=== PATIENT | male | born 1945 | race Two or more races ===

== ENCOUNTER 2016-09-14 17:27 | Emergency (ER) | payer MEDICAID, OTHER ==
[~2016-09-14] VITALS: Ht 177.8 cm; Wt 68.0 kg
[~2016-09-14 17:27] MED LIST: DICL50TA4 PO; IBUP600T27 PO; OXYB15TA12 PO
[2016-09-14 18:05] VITALS: BP 113/82
[2016-09-14] MEDS ORDERED: SODIUM CHLORIDE 0.9% 1,000 ML IV ONE (19:31)
[2016-09-14] MEDS ORDERED: ONDANSETRON HCL 4 MG/2 ML VIAL IV ONE (19:45)
[2016-09-14] MEDS ORDERED: MORPHINE SULFATE 4 MG/ML SYRG IV ONE (19:45)
[2016-09-14 20:19] LABS: Basophils # (auto) 0 uL; Basophils % (auto) 0.5 % (0.0-2.0); CONDITION Y; Eosinophils # (auto) 0.3 uL; Eosinophils % (auto) 3.4 % (0.0-7.0); Hematocrit 42.6 % (41.0-53.0); Hemoglobin 14.5 g/dL (13.5-17.5); Lymphocytes # (auto) 2.3 uL; Lymphocytes % (auto) 23.9 % (10.0-50.0); Mean Corpuscular Hemoglobin 32.1 pg (28.0-32.0); Mean Corpuscular Volume 94.6 fL (80.0-100.0); Monocytes # (auto) 0.8 uL; Monocytes % (auto) 8.5 % (0.0-12.0); Neutrophils # (auto) 6.1 uL; Neutrophils % (auto) 63.7 % (37.0-80.0); Platelet Count (auto) 316 10^3/uL (140-450); Red Cell Distribution Width 14.1 % (11.6-16.0); White Blood Cell 9.6 10^3/uL (4.4-10.8)
[2016-09-14 20:31] LABS: Urine Bilirubin Negative (Negative); Urine Blood Negative /uL (Negative); Urine Color Yellow (Yellow); Urine Glucose Normal (Normal); Urine Ketone Negative (Negative); Urine Mucus FEW (None Seen); Urine Nitrite Negative (Negative); Urine RBC 1 /hpf (0 - 3)
[2016-09-14 20:34] LABS: Albumin 3.3 g/dL (3.4-5.0); BUN/Creatinine Ratio 31.1; Calcium 8.5 mg/dL (8.5-10.1); INR 0.98 (0.9-1.15); Partial Thromboplastin Time 28.8 sec (22.64-33.71); Prothrombin Time 10.7 sec (9.37-12.3)
[2016-09-14 20:37] LABS: Bilirubin, Total 0.7 mg/dL (0.2-1.0); Total Protein 7.2 g/dL (6.4-8.2)
[2016-09-14] MEDS ORDERED: TETANUS-DIPTH-ACEL PERTUSSIS 0.5ML SYRG IM ONE (21:15)
[2016-09-14] MEDS ORDERED: cefTRIAXone 1GM/50ML D5W 50 ML IV ONE (22:30)
== END 2016-09-15 02:00 | disposition left against medical advice (07) ==
LOC: ER 17:29
DX: L03.116 Cellulitis of left lower limb (principal); L03.115 Cellulitis of right lower limb; M19.90 Unspecified osteoarthritis, unspecified site; B19.20 Unspecified viral hepatitis C without hepatic coma; M41.9 Scoliosis, unspecified; F17.210 Nicotine dependence, cigarettes, uncomplicated; Z79.899 Other long term (current) drug therapy
CPT/HCPCS: 36415; 71010; 73562; 73590; 80053; 81001; 85025; 85610; 85730; 87040; 90471; 90715; 93971; 96365; 96375; 99285; J0696; J2270; J2405; J7030

== ENCOUNTER 2020-11-09 21:53 | Inpatient (IN) | payer OTHER, MEDICAID ==
[~2020-11-09] VITALS: Ht 180.3 cm; Wt 154.8 kg
[2020-11-09 23:06] LABS: Hemoglobin 15.2 g/dL (13.5-17.5)
[2020-11-09 23:20] LABS: Hematocrit 44.1 % (41.0-53.0); Mean Corpuscular Hemoglobin 32.5 pg (28.0-32.0); Mean Corpuscular Hgb Conc. 34.6 g/dL (32.0-36.0); Mean Corpuscular Volume 94.1 fL (80.0-100.0); Red Blood Cells 4.68 10^6/uL (4.5-5.90); Red Cell Distribution Width 13.9 % (11.8-14.3); White Blood Cell 23.5 10^3/uL (4.4-10.8)
[2020-11-09 23:23] LABS: Basophils % (manual) 0 (0.0-2.0); Blast Cells 0; Eosinophils % (manual) 0 (0-7); Metamyelocytes % 0; Myelocytes % 0; Promyelocytes % 0; Reactive Lymphocytes 0
[2020-11-09 23:24] LABS: Alanine Aminotransferase 54 U/L (16-61); Albumin 3.1 g/dL (3.4-5.0); Anion Gap 10 (5-15); Aspartate Aminotransferase 47 U/L (15-37); BUN/Creatinine Ratio 26.8; Blood Urea Nitrogen 26 mg/dL (7-18); Calcium 8.6 mg/dL (8.5-10.1); Carbon Dioxide 24 mmol/L (21-32); Chloride 94 mmol/L (98-107); GFR African American 97 mL/min; GFR Non-African American 80 mL/min; Glucose 118 mg/dL (74-106); Potassium 3.8 mmol/L (3.5-5.1); Sodium 128 mmol/L (136-145)
[2020-11-09 23:31] LABS: Alkaline Phosphatase 99 U/L (45-117); Bilirubin, Total 1.2 mg/dL (0.2-1.0); Total Protein 7.6 g/dL (6.4-8.2)
[2020-11-10] MEDS ORDERED: SODIUM CHLORIDE 0.9% 1,000 ML IV ONE
[2020-11-10 00:09] LABS: Band Neutrophils % (manual) 19; Lymphocytes % (manual) 3 (10.0-50.0); Monocytes % (manual) 10 (0-12)
[2020-11-10] MEDS ORDERED: IOHEXOL 300 MG/ML 100ML BOTTLE IJ ONE (00:58)
[2020-11-10] MEDS ORDERED: ONDANSETRON HCL 4 MG/2 ML VIAL IV ONE (01:00)
[2020-11-10 01:35] LABS: Urine Bacteria NONE SEEN /hpf (None Seen); Urine Blood 1+ /uL (Negative); Urine Mucus FEW (None Seen); Urine Specific Gravity 1.017 (1.001-1.035); Urine WBC 1825 /hpf (0 - 3); Urine WBC Clumps PRESENT /hpf (None Seen)
[2020-11-10] MEDS ORDERED: cefTRIAXone 1GM/50ML D5W 50 ML IV ONE (04:15)
[2020-11-10] MEDS ORDERED: MORPHINE SULFATE INJECTION 2 MG/ML SYRG IV ONE ×2 (06:15→09:00)
[2020-11-10] MEDS ORDERED: NITROGLYCERIN 0.4 MG SL TAB SL PRN (08:30)
[2020-11-10] MEDS ORDERED: SODIUM CHLORIDE 0.9% 1,900 ML IV ONE (08:30)
[2020-11-10] MEDS ORDERED: MORPHINE SULFATE INJECTION 2 MG/ML SYRG IV PRN (08:30)
[2020-11-10] MEDS ORDERED: ACETAMINOPHEN 500 MG TAB PO PRN (11:00)
[2020-11-10] MEDS ORDERED: ONDANSETRON HCL 4 MG/2 ML VIAL IV PRN (11:00)
[2020-11-10 12:12] LABS: Amylase 28 U/L (25-115); Lipase 30 U/L (73-393)
[2020-11-10] MEDS: SODIUM CHLORIDE 0.9% 1,000 ML IV SCH ×2 (12:26→21:00)
[2020-11-10] MEDS: HYDROmorphone HCL 2 MG/ML VL IV PRN ×2 (13:37→18:45)
[2020-11-10 18:05] VITALS: BP 115/70
[2020-11-10 20:24] LABS: INR 1.19 (0.9-1.15); Partial Thromboplastin Time 34.2 sec (23.6-33.0)
[2020-11-10 22:00] VITALS: BP 115/70
[2020-11-11] VITALS (7 sets, daily range): BP systolic 111–137; BP diastolic 67–84
[2020-11-11] MEDS: HYDROmorphone HCL 2 MG/ML VL IV PRN ×5 (00:37→23:05)
[2020-11-11] MEDS: SODIUM CHLORIDE 0.9% 1,000 ML IV SCH ×2 (06:31→18:05)
[2020-11-11 10:17] LABS: Basophils # (auto) 0.1 10 ^3/uL (0-0.2); Basophils % (auto) 0.3 % (0.0-2.0); Eosinophils # (auto) 0 10 ^3/uL (0-0.8); Hematocrit 35.6 % (41.0-53.0); Lymphocytes # (auto) 0.4 10 ^3/uL (0.4-5.4); Lymphocytes % (auto) 2.5 % (10.0-50.0); Mean Corpuscular Hemoglobin 32.1 pg (28.0-32.0); Mean Corpuscular Hgb Conc. 33.7 g/dL (32.0-36.0); Mean Corpuscular Volume 95.1 fL (80.0-100.0); Monocytes # (auto) 0.8 10 ^3/uL (0-1.3); Monocytes % (auto) 4.6 % (0.0-12.0); Neutrophils # (auto) 15.9 10 ^3/uL (1.6-8.6); Neutrophils % (auto) 92.6 % (37.0-80.0); Red Blood Cells 3.74 10^6/uL (4.5-5.90); Red Cell Distribution Width 14.1 % (11.8-14.3); White Blood Cell 17.1 10^3/uL (4.4-10.8)
[2020-11-11 10:38] LABS: Potassium 3.2 mmol/L (3.5-5.1)
[2020-11-11 10:46] LABS: Albumin 1.9 g/dL (3.4-5.0); BUN/Creatinine Ratio 55.6; Bilirubin, Total 0.5 mg/dL (0.2-1.0); Calcium 7.5 mg/dL (8.5-10.1); Total Protein 5.8 g/dL (6.4-8.2)
[2020-11-11] MEDS ORDERED: IBUPROFEN 600 MG TAB PO PRN (11:15)
[2020-11-11] MEDS ORDERED: POTASSIUM EFFERVESENT TAB 25 MEQ PO ONE (11:15)
[2020-11-11] MEDS ORDERED: VANCOMYCIN PER PHARMACY 0 MG IV SCH (11:15)
[2020-11-11] MEDS: Ensure HIGH Protein Chocolate 8oz Bottle PO SCH ×2 (12:00→18:00)
[2020-11-11] MEDS ORDERED: VANCOMYCIN 1GM/250ML 250 ML IV ONE (12:45)
[2020-11-11] MEDS: cefTRIAXone 1GM/50ML D5W 50 ML IV SCH (13:34)
[2020-11-11] MEDS: PANTOPRAZOLE 40 MG TAB PO SCH (13:34)
[2020-11-11] MEDS: ENOXAPARIN SOD 40 MG/0.4 ML SYRINGE SC SCH (13:35)
[2020-11-11] MEDS: VANCOMYCIN 1GM/250ML 250 ML IV SCH (16:08)
[2020-11-11] MEDS ORDERED: FLEET ENEMA(ADULT) 135 ML PR ONE (20:30)
[2020-11-11] MEDS: MORPHINE SULF 30 mg ER tab PO SCH (21:45)
[2020-11-11] MEDS: OXYBUTYNIN CHL 5 MG TAB PO SCH (21:45)
[2020-11-11] MEDS: DOCUSATE SOD 100 MG CAP PO SCH (21:58)
[2020-11-12] VITALS (7 sets, daily range): BP systolic 105–136; BP diastolic 56–92
[2020-11-12] MEDS: VANCOMYCIN 1GM/250ML 250 ML IV SCH ×2 (02:14→14:44)
[2020-11-12] MEDS: HYDROmorphone HCL 2 MG/ML VL IV PRN ×4 (05:53→21:41)
[2020-11-12] MEDS: SODIUM CHLORIDE 0.9% 1,000 ML IV SCH ×3 (06:01→23:55)
[2020-11-12] MEDS: Ensure HIGH Protein Chocolate 8oz Bottle PO SCH ×3 (08:00→17:24)
[2020-11-12 08:18] LABS: Basophils # (auto) 0 10 ^3/uL (0-0.2); Basophils % (auto) 0.3 % (0.0-2.0); Eosinophils # (auto) 0.1 10 ^3/uL (0-0.8); Eosinophils % (auto) 0.6 % (0.0-7.0); Hematocrit 31.4 % (41.0-53.0); Hemoglobin 10.9 g/dL (13.5-17.5); Lymphocytes # (auto) 0.8 10 ^3/uL (0.4-5.4); Mean Corpuscular Hemoglobin 32.3 pg (28.0-32.0); Mean Corpuscular Hgb Conc. 34.7 g/dL (32.0-36.0); Monocytes # (auto) 0.8 10 ^3/uL (0-1.3); Monocytes % (auto) 7.8 % (0.0-12.0); Neutrophils # (auto) 8.2 10 ^3/uL (1.6-8.6); Neutrophils % (auto) 83.3 % (37.0-80.0); Nucleated Red Blood Cells % 0.2 %; Red Blood Cells 3.37 10^6/uL (4.5-5.90); Red Cell Distribution Width 14.1 % (11.8-14.3); White Blood Cell 9.8 10^3/uL (4.4-10.8)
[2020-11-12 08:35] LABS: Albumin 1.8 g/dL (3.4-5.0); BUN/Creatinine Ratio 42.4; Calcium 7.3 mg/dL (8.5-10.1); Potassium 3.1 mmol/L (3.5-5.1)
[2020-11-12 08:38] LABS: Bilirubin, Total 0.3 mg/dL (0.2-1.0); Total Protein 5.2 g/dL (6.4-8.2)
[2020-11-12] MEDS: DOCUSATE SOD 100 MG CAP PO SCH ×2 (10:00→21:45)
[2020-11-12] MEDS: cefTRIAXone 1GM/50ML D5W 50 ML IV SCH (11:21)
[2020-11-12] MEDS: OXYBUTYNIN CHL 5 MG TAB PO SCH ×2 (11:21→21:46)
[2020-11-12] MEDS: PANTOPRAZOLE 40 MG TAB PO SCH (11:21)
[2020-11-12] MEDS: MORPHINE SULF 30 mg ER tab PO SCH ×2 (11:21→21:47)
[2020-11-12] MEDS: ENOXAPARIN SOD 40 MG/0.4 ML SYRINGE SC SCH (11:22)
[2020-11-13] MEDS: HYDROmorphone HCL 2 MG/ML VL IV PRN ×5 (02:08→23:07)
[2020-11-13] MEDS: VANCOMYCIN 1GM/250ML 250 ML IV SCH ×2 (02:09→19:47)
[2020-11-13 02:23] LABS: Basophils # (auto) 0.1 10 ^3/uL (0-0.2); Basophils % (auto) 0.6 % (0.0-2.0); Eosinophils # (auto) 0.1 10 ^3/uL (0-0.8); Eosinophils % (auto) 1.3 % (0.0-7.0); Hematocrit 31.9 % (41.0-53.0); Hemoglobin 11.1 g/dL (13.5-17.5); Lymphocytes # (auto) 1.2 10 ^3/uL (0.4-5.4); Lymphocytes % (auto) 14.2 % (10.0-50.0); Mean Corpuscular Hemoglobin 32.5 pg (28.0-32.0); Mean Corpuscular Hgb Conc. 34.9 g/dL (32.0-36.0); Mean Corpuscular Volume 93.2 fL (80.0-100.0); Monocytes # (auto) 0.9 10 ^3/uL (0-1.3); Monocytes % (auto) 10.1 % (0.0-12.0); Neutrophils # (auto) 6.3 10 ^3/uL (1.6-8.6); Neutrophils % (auto) 73.8 % (37.0-80.0); Nucleated Red Blood Cells % 0.1 %; Red Blood Cells 3.43 10^6/uL (4.5-5.90); Red Cell Distribution Width 13.9 % (11.8-14.3); White Blood Cell 8.5 10^3/uL (4.4-10.8)
[2020-11-13 02:42] LABS: Calcium 7.3 mg/dL (8.5-10.1); Potassium 3.5 mmol/L (3.5-5.1)
[2020-11-13 05:00] VITALS: BP 104/60
[2020-11-13 08:00] VITALS: BP 124/53
[2020-11-13 09:00] VITALS: BP 124/53
[2020-11-13] MEDS: SODIUM CHLORIDE 0.9% 1,000 ML IV SCH ×2 (11:03→18:16)
[2020-11-13] MEDS: Ensure HIGH Protein Chocolate 8oz Bottle PO SCH ×3 (11:03→18:16)
[2020-11-13] MEDS: MORPHINE SULF 30 mg ER tab PO SCH ×2 (11:04→21:41)
[2020-11-13] MEDS: DOCUSATE SOD 100 MG CAP PO SCH ×2 (11:04→21:40)
[2020-11-13] MEDS: cefTRIAXone 1GM/50ML D5W 50 ML IV SCH (11:04)
[2020-11-13] MEDS: OXYBUTYNIN CHL 5 MG TAB PO SCH ×2 (11:04→21:41)
[2020-11-13] MEDS: PANTOPRAZOLE 40 MG TAB PO SCH (11:05)
[2020-11-13] MEDS: ENOXAPARIN SOD 40 MG/0.4 ML SYRINGE SC SCH (11:05)
[2020-11-13 13:00] VITALS: BP 108/58
[2020-11-13] MEDS: CLINDAMYCIN 300MG IV 50 ML IV SCH ×2 (15:02→23:09)
[2020-11-13] MEDS: NEOMYCIN-POLYM-GRAM OPTH(EYE) SOL 10ML EACHEYE SCH ×3 (15:02→21:40)
[2020-11-13 17:00] VITALS: BP 109/69
[2020-11-13] MEDS: SUCRALFATE 1 GM/10 ML ORAL SUSP PO SCH ×2 (18:15→21:40)
[2020-11-13 22:00] VITALS: BP 137/83
[2020-11-14] MEDS: NEOMYCIN-POLYM-GRAM OPTH(EYE) SOL 10ML EACHEYE SCH ×6 (02:00→21:28)
[2020-11-14 05:00] VITALS: BP 123/70
[2020-11-14] MEDS: SODIUM CHLORIDE 0.9% 1,000 ML IV SCH ×3 (06:00→12:29)
[2020-11-14] MEDS: CLINDAMYCIN 300MG IV 50 ML IV SCH ×3 (06:04→22:51)
[2020-11-14] MEDS: HYDROmorphone HCL 2 MG/ML VL IV PRN ×4 (06:17→23:12)
[2020-11-14 06:44] LABS: Basophils # (auto) 0.1 10 ^3/uL (0-0.2); Basophils % (auto) 0.5 % (0.0-2.0); Eosinophils # (auto) 0.3 10 ^3/uL (0-0.8); Eosinophils % (auto) 2.5 % (0.0-7.0); Hematocrit 32.5 % (41.0-53.0); Hemoglobin 11.3 g/dL (13.5-17.5); Lymphocytes # (auto) 1.8 10 ^3/uL (0.4-5.4); Lymphocytes % (auto) 15.3 % (10.0-50.0); Mean Corpuscular Hemoglobin 32.6 pg (28.0-32.0); Mean Corpuscular Hgb Conc. 34.7 g/dL (32.0-36.0); Mean Corpuscular Volume 93.9 fL (80.0-100.0); Monocytes # (auto) 1.4 10 ^3/uL (0-1.3); Monocytes % (auto) 11.3 % (0.0-12.0); Neutrophils # (auto) 8.5 10 ^3/uL (1.6-8.6); Neutrophils % (auto) 70.4 % (37.0-80.0); Nucleated Red Blood Cells % 0.1 %; Red Blood Cells 3.46 10^6/uL (4.5-5.90)
[2020-11-14 07:04] LABS: Potassium 3.5 mmol/L (3.5-5.1)
[2020-11-14 07:09] LABS: Albumin 1.8 g/dL (3.4-5.0); BUN/Creatinine Ratio 20.5; Calcium 7.6 mg/dL (8.5-10.1)
[2020-11-14 07:17] LABS: Bilirubin, Total 0.4 mg/dL (0.2-1.0); Total Protein 5.2 g/dL (6.4-8.2)
[2020-11-14] MEDS: Ensure HIGH Protein Chocolate 8oz Bottle PO SCH ×3 (08:00→18:00)
[2020-11-14 09:00] VITALS: BP 112/64
[2020-11-14] MEDS: cefTRIAXone 1GM/50ML D5W 50 ML IV SCH (09:03)
[2020-11-14] MEDS: DOCUSATE SOD 100 MG CAP PO SCH ×2 (09:03→21:08)
[2020-11-14] MEDS: OXYBUTYNIN CHL 5 MG TAB PO SCH ×2 (09:03→21:09)
[2020-11-14] MEDS: PANTOPRAZOLE 40 MG TAB PO SCH (09:04)
[2020-11-14] MEDS: MORPHINE SULF 30 mg ER tab PO SCH ×2 (09:04→21:29)
[2020-11-14] MEDS: ENOXAPARIN SOD 40 MG/0.4 ML SYRINGE SC SCH (09:04)
[2020-11-14] MEDS: SUCRALFATE 1 GM/10 ML ORAL SUSP PO SCH ×4 (10:52→21:08)
[2020-11-14 13:00] VITALS: BP 103/62
[2020-11-14] MEDS: VANCOMYCIN 1GM/250ML 250 ML IV SCH (14:00)
[2020-11-14 17:08] VITALS: BP 121/64
[2020-11-14] MEDS: HYDROcodone-ACET 5/325MG TAB PO PRN (18:09)
[2020-11-14] MEDS ORDERED: VANCOMYCIN 1GM/250ML 250 ML IV SCH (21:00)
[2020-11-14 22:18] VITALS: BP 95/52
[2020-11-15] MEDS: HYDROcodone-ACET 5/325MG TAB PO PRN ×2 (01:30→17:13)
[2020-11-15] MEDS: NEOMYCIN-POLYM-GRAM OPTH(EYE) SOL 10ML EACHEYE SCH ×6 (01:33→21:34)
[2020-11-15 05:00] VITALS: BP 130/73
[2020-11-15] MEDS: CLINDAMYCIN 300MG IV 50 ML IV SCH (06:00)
[2020-11-15 06:07] LABS: Basophils # (auto) 0.1 10 ^3/uL (0-0.2); Basophils % (auto) 0.6 % (0.0-2.0); Eosinophils # (auto) 0.4 10 ^3/uL (0-0.8); Eosinophils % (auto) 3.3 % (0.0-7.0); Hematocrit 32.8 % (41.0-53.0); Hemoglobin 11.4 g/dL (13.5-17.5); Lymphocytes # (auto) 1.9 10 ^3/uL (0.4-5.4); Mean Corpuscular Hgb Conc. 34.7 g/dL (32.0-36.0); Mean Corpuscular Volume 92.3 fL (80.0-100.0); Monocytes # (auto) 1.1 10 ^3/uL (0-1.3); Monocytes % (auto) 10.4 % (0.0-12.0); Neutrophils # (auto) 7.6 10 ^3/uL (1.6-8.6); Neutrophils % (auto) 68.7 % (37.0-80.0); Red Blood Cells 3.56 10^6/uL (4.5-5.90); Red Cell Distribution Width 13.7 % (11.8-14.3)
[2020-11-15] MEDS: SUCRALFATE 1 GM/10 ML ORAL SUSP PO SCH ×4 (06:20→21:34)
[2020-11-15 07:00] LABS: Albumin 1.8 g/dL (3.4-5.0); BUN/Creatinine Ratio 17.1; Calcium 7.6 mg/dL (8.5-10.1); Potassium 3.1 mmol/L (3.5-5.1)
[2020-11-15 07:20] LABS: Bilirubin, Total 0.4 mg/dL (0.2-1.0); Total Protein 5.1 g/dL (6.4-8.2)
[2020-11-15 09:00] VITALS: BP 135/83
[2020-11-15] MEDS: DOCUSATE SOD 100 MG CAP PO SCH ×2 (09:21→21:34)
[2020-11-15] MEDS: ENOXAPARIN SOD 40 MG/0.4 ML SYRINGE SC SCH (09:21)
[2020-11-15] MEDS: OXYBUTYNIN CHL 5 MG TAB PO SCH ×2 (09:22→21:35)
[2020-11-15] MEDS: PANTOPRAZOLE 40 MG TAB PO SCH (09:22)
[2020-11-15] MEDS: MORPHINE SULF 30 mg ER tab PO SCH ×2 (09:22→21:35)
[2020-11-15] MEDS: Ensure HIGH Protein Chocolate 8oz Bottle PO SCH ×3 (09:24→17:56)
[2020-11-15] MEDS ORDERED: cefTRIAXone 1GM/50ML D5W 50 ML IV SCH (10:00)
[2020-11-15] MEDS: HYDROmorphone HCL 2 MG/ML VL IV PRN (12:03)
[2020-11-15] MEDS ORDERED: POTASSIUM CHL 20 Meq TABLET PO ONE (12:15)
[2020-11-15] MEDS: SODIUM CHLORIDE 0.9% 1,000 ML IV SCH (12:30)
[2020-11-15 12:32] VITALS: BP 112/64
[2020-11-15 17:07] VITALS: BP 119/57
[2020-11-15 22:00] VITALS: BP 145/78
[2020-11-16] VITALS (7 sets, daily range): BP systolic 126–134; BP diastolic 60–80
[2020-11-16] MEDS: NEOMYCIN-POLYM-GRAM OPTH(EYE) SOL 10ML EACHEYE SCH ×5 (02:27→22:05)
[2020-11-16] MEDS: SODIUM CHLORIDE 0.9% 1,000 ML IV SCH ×2 (02:33→18:20)
[2020-11-16] MEDS: HYDROcodone-ACET 5/325MG TAB PO PRN ×2 (05:04→20:29)
[2020-11-16] MEDS: SUCRALFATE 1 GM/10 ML ORAL SUSP PO SCH ×4 (06:14→22:05)
[2020-11-16 06:29] LABS: INR 1.17 (0.9-1.15)
[2020-11-16 06:44] LABS: Potassium 3.7 mmol/L (3.5-5.1)
[2020-11-16 06:58] LABS: BUN/Creatinine Ratio 16.7; Calcium 7.8 mg/dL (8.5-10.1); Magnesium 2.1 mg/dL (1.6-2.6)
[2020-11-16 06:59] LABS: Basophils # (auto) 0.1 10 ^3/uL (0-0.2); Basophils % (auto) 0.6 % (0.0-2.0); Eosinophils # (auto) 0.4 10 ^3/uL (0-0.8); Eosinophils % (auto) 3.7 % (0.0-7.0); Hematocrit 34.6 % (41.0-53.0); Hemoglobin 11.7 g/dL (13.5-17.5); Lymphocytes # (auto) 1.6 10 ^3/uL (0.4-5.4); Lymphocytes % (auto) 14.8 % (10.0-50.0); Mean Corpuscular Hemoglobin 31.5 pg (28.0-32.0); Mean Corpuscular Hgb Conc. 33.7 g/dL (32.0-36.0); Mean Corpuscular Volume 93.5 fL (80.0-100.0); Monocytes # (auto) 1.2 10 ^3/uL (0-1.3); Monocytes % (auto) 11.1 % (0.0-12.0); Neutrophils # (auto) 7.5 10 ^3/uL (1.6-8.6); Neutrophils % (auto) 69.8 % (37.0-80.0); Nucleated Red Blood Cells % 0.1 %; Red Cell Distribution Width 14.1 % (11.8-14.3); White Blood Cell 10.8 10^3/uL (4.4-10.8)
[2020-11-16] MEDS: Ensure HIGH Protein Chocolate 8oz Bottle PO SCH ×3 (08:00→18:24)
[2020-11-16] MEDS: PANTOPRAZOLE 40 MG TAB PO SCH (10:34)
[2020-11-16] MEDS: OXYBUTYNIN CHL 5 MG TAB PO SCH ×2 (10:34→22:05)
[2020-11-16] MEDS: ENOXAPARIN SOD 40 MG/0.4 ML SYRINGE SC SCH (10:35)
[2020-11-16] MEDS: MORPHINE SULF 30 mg ER tab PO SCH ×2 (10:35→22:06)
[2020-11-16] MEDS: DOCUSATE SOD 100 MG CAP PO SCH ×2 (10:35→22:05)
[2020-11-16] MEDS ORDERED: SODIUM CHLORIDE LOCK 10 ML ONE (14:52)
[2020-11-16] MEDS ORDERED: LIDOCAINE VISCOUS 2% 15ML UD ONE (14:52)
[2020-11-16] MEDS ORDERED: diphenhdrAMINE HCL 50 MG/1 ML VL ONE (14:53)
[2020-11-16] MEDS ORDERED: fentaNYL CITRATE 100 MCG/2 ML VL ONE (14:53)
[2020-11-16] MEDS ORDERED: MIDAZOLAM HCL 5 MG/ML-1ML VIAL ONE (14:53)
[2020-11-17] MEDS: NEOMYCIN-POLYM-GRAM OPTH(EYE) SOL 10ML EACHEYE SCH ×6 (02:38→22:00)
[2020-11-17] MEDS: HYDROcodone-ACET 5/325MG TAB PO PRN ×3 (02:39→17:49)
[2020-11-17 03:37] LABS: Potassium 3.5 mmol/L (3.5-5.1)
[2020-11-17 05:00] VITALS: BP 126/65
[2020-11-17] MEDS: SODIUM CHLORIDE 0.9% 1,000 ML IV SCH ×2 (06:11→23:07)
[2020-11-17] MEDS: SUCRALFATE 1 GM/10 ML ORAL SUSP PO SCH ×4 (06:21→22:03)
[2020-11-17 08:00] VITALS: BP 102/45
[2020-11-17] MEDS: Ensure HIGH Protein Chocolate 8oz Bottle PO SCH ×3 (08:07→18:29)
[2020-11-17 09:00] VITALS: BP 102/45
[2020-11-17] MEDS: OXYBUTYNIN CHL 5 MG TAB PO SCH ×2 (10:53→22:03)
[2020-11-17] MEDS: DOCUSATE SOD 100 MG CAP PO SCH ×2 (10:53→22:03)
[2020-11-17] MEDS: MORPHINE SULF 30 mg ER tab PO SCH ×2 (10:54→22:03)
[2020-11-17] MEDS: PANTOPRAZOLE 40 MG TAB PO SCH ×2 (10:54→22:03)
[2020-11-17] MEDS: ENOXAPARIN SOD 40 MG/0.4 ML SYRINGE SC SCH (10:54)
[2020-11-17] MEDS ORDERED: SUCR1TAB22 PO (11:39)
[2020-11-17] MEDS ORDERED: NYS5LQ MT (11:39)
[2020-11-17] MEDS ORDERED: PANT40TA2 PO (11:39)
[2020-11-17] MEDS ORDERED: DOCU-94 PO (11:40)
[2020-11-17] MEDS: NYSTATIN (MOUTH-THROAT) 500,000 UNITS/5 ML SUSP MT SCH ×3 (12:33→22:03)
[2020-11-17 12:59] VITALS: BP 114/81
[2020-11-17 17:00] VITALS: BP 132/79
[2020-11-17 22:18] VITALS: BP 142/65
[2020-11-18] MEDS: HYDROcodone-ACET 5/325MG TAB PO PRN (01:08)
[2020-11-18] MEDS: NEOMYCIN-POLYM-GRAM OPTH(EYE) SOL 10ML EACHEYE SCH ×6 (01:59→22:00)
[2020-11-18 05:30] VITALS: BP 167/80
[2020-11-18] MEDS: NYSTATIN (MOUTH-THROAT) 500,000 UNITS/5 ML SUSP MT SCH ×4 (06:43→22:32)
[2020-11-18] MEDS: SUCRALFATE 1 GM/10 ML ORAL SUSP PO SCH ×4 (06:43→22:32)
[2020-11-18 07:18] LABS: Basophils # (auto) 0.1 10 ^3/uL (0-0.2); Basophils % (auto) 1.2 % (0.0-2.0); Eosinophils # (auto) 0.4 10 ^3/uL (0-0.8); Eosinophils % (auto) 3.7 % (0.0-7.0); Hemoglobin 11.7 g/dL (13.5-17.5); Monocytes # (auto) 1.1 10 ^3/uL (0-1.3); Neutrophils # (auto) 6.7 10 ^3/uL (1.6-8.6); Nucleated Red Blood Cells % 0.1 %; White Blood Cell 11.3 10^3/uL (4.4-10.8)
[2020-11-18 07:21] LABS: Hematocrit 34.1 % (41.0-53.0); Lymphocytes # (auto) 2.9 10 ^3/uL (0.4-5.4); Lymphocytes % (auto) 25.7 % (10.0-50.0); Mean Corpuscular Hemoglobin 31.8 pg (28.0-32.0); Mean Corpuscular Hgb Conc. 34.3 g/dL (32.0-36.0); Mean Corpuscular Volume 92.7 fL (80.0-100.0); Neutrophils % (auto) 59.4 % (37.0-80.0); Red Blood Cells 3.67 10^6/uL (4.5-5.90); Red Cell Distribution Width 14.5 % (11.8-14.3)
[2020-11-18 07:34] LABS: BUN/Creatinine Ratio 17.1; Calcium 8.4 mg/dL (8.5-10.1); Potassium 3.7 mmol/L (3.5-5.1)
[2020-11-18 08:00] VITALS: BP 111/65
[2020-11-18 09:00] VITALS: BP 111/63
[2020-11-18] MEDS: MORPHINE SULF 30 mg ER tab PO SCH ×2 (10:04→22:31)
[2020-11-18] MEDS: PANTOPRAZOLE 40 MG TAB PO SCH ×2 (10:04→22:32)
[2020-11-18] MEDS: DOCUSATE SOD 100 MG CAP PO SCH ×2 (10:04→22:32)
[2020-11-18] MEDS: Ensure HIGH Protein Chocolate 8oz Bottle PO SCH ×3 (10:04→18:30)
[2020-11-18] MEDS: OXYBUTYNIN CHL 5 MG TAB PO SCH ×2 (10:04→22:32)
[2020-11-18] MEDS: ENOXAPARIN SOD 40 MG/0.4 ML SYRINGE SC SCH (10:05)
[2020-11-18 13:00] VITALS: BP 121/64
[2020-11-18] MEDS: oxyCODONE HCL 5MG TAB PO PRN ×2 (13:31→19:57)
[2020-11-18] MEDS: ALBUTEROL SULF 2.5 MG/0.5ML(0.5%) NEB SOLN NEB PRN (14:14)
[2020-11-18] MEDS: IPRATROPIUM BROM 0.5 MG/2.5ML INH SOL NEB PRN (14:14)
[2020-11-18] MEDS: SODIUM CHLORIDE 0.9% 1,000 ML IV SCH (16:15)
[2020-11-18 17:31] VITALS: BP 116/65
[2020-11-19] MEDS: NEOMYCIN-POLYM-GRAM OPTH(EYE) SOL 10ML EACHEYE SCH ×6 (02:00→21:21)
[2020-11-19] MEDS: oxyCODONE HCL 5MG TAB PO PRN ×4 (02:23→22:00)
[2020-11-19] MEDS: ALBUTEROL SULF 2.5 MG/0.5ML(0.5%) NEB SOLN NEB PRN ×2 (04:34→20:16)
[2020-11-19] MEDS: IPRATROPIUM BROM 0.5 MG/2.5ML INH SOL NEB PRN ×2 (04:34→20:16)
[2020-11-19 05:00] VITALS: BP 93/53
[2020-11-19 06:01] LABS: Basophils # (auto) 0.1 10 ^3/uL (0-0.2); Basophils % (auto) 1.1 % (0.0-2.0); Eosinophils # (auto) 0.3 10 ^3/uL (0-0.8); Eosinophils % (auto) 2.6 % (0.0-7.0); Hematocrit 34.6 % (41.0-53.0); Hemoglobin 11.9 g/dL (13.5-17.5); Lymphocytes # (auto) 3.1 10 ^3/uL (0.4-5.4); Lymphocytes % (auto) 30.1 % (10.0-50.0); Mean Corpuscular Hgb Conc. 34.3 g/dL (32.0-36.0); Mean Corpuscular Volume 93.3 fL (80.0-100.0); Monocytes # (auto) 1.1 10 ^3/uL (0-1.3); Monocytes % (auto) 10.9 % (0.0-12.0); Neutrophils # (auto) 5.8 10 ^3/uL (1.6-8.6); Neutrophils % (auto) 55.3 % (37.0-80.0); Nucleated Red Blood Cells % 0.1 %; Red Blood Cells 3.71 10^6/uL (4.5-5.90); White Blood Cell 10.4 10^3/uL (4.4-10.8)
[2020-11-19] MEDS: NYSTATIN (MOUTH-THROAT) 500,000 UNITS/5 ML SUSP MT SCH ×4 (06:24→21:06)
[2020-11-19] MEDS: SUCRALFATE 1 GM/10 ML ORAL SUSP PO SCH ×4 (06:24→21:06)
[2020-11-19] MEDS: Ensure HIGH Protein Chocolate 8oz Bottle PO SCH ×3 (08:54→17:04)
[2020-11-19] MEDS: SODIUM CHLORIDE 0.9% 1,000 ML IV SCH (08:55)
[2020-11-19 09:05] VITALS: BP 102/54
[2020-11-19] MEDS: DOCUSATE SOD 100 MG CAP PO SCH ×2 (09:17→21:06)
[2020-11-19] MEDS: PANTOPRAZOLE 40 MG TAB PO SCH ×2 (09:17→21:07)
[2020-11-19] MEDS: MORPHINE SULF 30 mg ER tab PO SCH ×2 (09:17→21:07)
[2020-11-19] MEDS: OXYBUTYNIN CHL 5 MG TAB PO SCH ×2 (09:17→21:06)
[2020-11-19] MEDS: ENOXAPARIN SOD 40 MG/0.4 ML SYRINGE SC SCH (09:17)
[2020-11-19] MEDS: LORazepam 0.5 MG TAB PO PRN (10:58)
[2020-11-19 13:00] VITALS: BP 97/56
[2020-11-19 16:45] VITALS: BP 113/67
[2020-11-19] MEDS: LACTULOSE 20Gm/30ML SOLN PO PRN (21:07)
[2020-11-19 22:00] VITALS: BP 102/38
[2020-11-20] MEDS: SODIUM CHLORIDE 0.9% 1,000 ML IV SCH ×3 (01:35→20:08)
[2020-11-20] MEDS: NEOMYCIN-POLYM-GRAM OPTH(EYE) SOL 10ML EACHEYE SCH ×6 (02:00→20:19)
[2020-11-20] MEDS: oxyCODONE HCL 5MG TAB PO PRN ×4 (04:56→20:17)
[2020-11-20 05:00] VITALS: BP_SYST 120; BP_SYST 84; BP_DIAS 51; BP_DIAS 68
[2020-11-20] MEDS: NYSTATIN (MOUTH-THROAT) 500,000 UNITS/5 ML SUSP MT SCH ×4 (06:50→20:18)
[2020-11-20] MEDS: SUCRALFATE 1 GM/10 ML ORAL SUSP PO SCH ×4 (06:51→20:19)
[2020-11-20 08:00] VITALS: BP 97/60
[2020-11-20 09:00] VITALS: BP 97/60
[2020-11-20 09:37] LABS: Eosinophils # (auto) 0.3 10 ^3/uL (0-0.8); Mean Corpuscular Hemoglobin 31.2 pg (28.0-32.0); Neutrophils # (auto) 6.7 10 ^3/uL (1.6-8.6); White Blood Cell 11.2 10^3/uL (4.4-10.8)
[2020-11-20 09:40] LABS: Basophils # (auto) 0.1 10 ^3/uL (0-0.2); Basophils % (auto) 0.6 % (0.0-2.0); Eosinophils % (auto) 2.4 % (0.0-7.0); Hemoglobin 11.9 g/dL (13.5-17.5); Lymphocytes % (auto) 26.4 % (10.0-50.0); Mean Corpuscular Hgb Conc. 33.1 g/dL (32.0-36.0); Mean Corpuscular Volume 94.1 fL (80.0-100.0); Monocytes # (auto) 1.2 10 ^3/uL (0-1.3); Monocytes % (auto) 11.1 % (0.0-12.0); Neutrophils % (auto) 59.5 % (37.0-80.0); Red Blood Cells 3.83 10^6/uL (4.5-5.90); Red Cell Distribution Width 14.2 % (11.8-14.3)
[2020-11-20] MEDS: MORPHINE SULF 30 mg ER tab PO SCH ×2 (09:40→22:25)
[2020-11-20] MEDS: Ensure HIGH Protein Chocolate 8oz Bottle PO SCH ×3 (09:40→18:23)
[2020-11-20] MEDS: DOCUSATE SOD 100 MG CAP PO SCH ×2 (09:40→20:18)
[2020-11-20] MEDS: OXYBUTYNIN CHL 5 MG TAB PO SCH ×2 (09:40→20:18)
[2020-11-20] MEDS: PANTOPRAZOLE 40 MG TAB PO SCH ×2 (09:41→20:18)
[2020-11-20] MEDS: ENOXAPARIN SOD 40 MG/0.4 ML SYRINGE SC SCH (09:41)
[2020-11-20 09:52] LABS: Albumin 2.2 g/dL (3.4-5.0); Calcium 8.3 mg/dL (8.5-10.1); Potassium 3.7 mmol/L (3.5-5.1)
[2020-11-20 09:54] LABS: BUN/Creatinine Ratio 12.5
[2020-11-20 09:57] LABS: Bilirubin, Total 0.4 mg/dL (0.2-1.0); Total Protein 5.9 g/dL (6.4-8.2)
[2020-11-20] MEDS: LACTULOSE 20Gm/30ML SOLN PO PRN ×2 (11:37→22:25)
[2020-11-20 12:56] VITALS: BP 106/56
[2020-11-20] MEDS ORDERED: LACTULOSE 20Gm/30ML SOLN PO ONE (16:45)
[2020-11-20] MEDS: ALBUTEROL SULF 2.5 MG/0.5ML(0.5%) NEB SOLN NEB PRN (17:58)
[2020-11-20] MEDS: IPRATROPIUM BROM 0.5 MG/2.5ML INH SOL NEB PRN (17:58)
[2020-11-20] MEDS ORDERED: FLEET ENEMA(ADULT) 135 ML PR ONE (23:00)
[2020-11-20 23:58] VITALS: BP 106/61
[2020-11-21] MEDS: NEOMYCIN-POLYM-GRAM OPTH(EYE) SOL 10ML EACHEYE SCH ×6 (02:07→20:36)
[2020-11-21] MEDS: oxyCODONE HCL 5MG TAB PO PRN ×3 (03:26→21:14)
[2020-11-21] MEDS: LORazepam 0.5 MG TAB PO PRN ×2 (03:27→22:17)
[2020-11-21 05:34] VITALS: BP 120/68
[2020-11-21] MEDS: NYSTATIN (MOUTH-THROAT) 500,000 UNITS/5 ML SUSP MT SCH ×4 (05:56→20:36)
[2020-11-21] MEDS: SUCRALFATE 1 GM/10 ML ORAL SUSP PO SCH ×4 (05:56→20:37)
[2020-11-21 06:11] LABS: Basophils # (auto) 0.1 10 ^3/uL (0-0.2); Hemoglobin 10.9 g/dL (13.5-17.5); Lymphocytes # (auto) 2.2 10 ^3/uL (0.4-5.4); Neutrophils # (auto) 6.3 10 ^3/uL (1.6-8.6); Red Blood Cells 3.41 10^6/uL (4.5-5.90)
[2020-11-21 06:13] LABS: Basophils % (auto) 0.9 % (0.0-2.0); Eosinophils # (auto) 0.4 10 ^3/uL (0-0.8); Eosinophils % (auto) 3.6 % (0.0-7.0); Hematocrit 31.8 % (41.0-53.0); Lymphocytes % (auto) 22.2 % (10.0-50.0); Mean Corpuscular Hemoglobin 32.1 pg (28.0-32.0); Mean Corpuscular Hgb Conc. 34.4 g/dL (32.0-36.0); Mean Corpuscular Volume 93.2 fL (80.0-100.0); Monocytes # (auto) 1.1 10 ^3/uL (0-1.3); Monocytes % (auto) 10.6 % (0.0-12.0); Neutrophils % (auto) 62.7 % (37.0-80.0); Nucleated Red Blood Cells % 0.1 %; Red Cell Distribution Width 14.3 % (11.8-14.3); White Blood Cell 10.1 10^3/uL (4.4-10.8)
[2020-11-21 06:49] LABS: Potassium 3.7 mmol/L (3.5-5.1)
[2020-11-21 06:52] LABS: BUN/Creatinine Ratio 7.8; Calcium 7.9 mg/dL (8.5-10.1)
[2020-11-21] MEDS: Ensure HIGH Protein Chocolate 8oz Bottle PO SCH ×3 (08:00→20:37)
[2020-11-21 09:00] VITALS: BP 96/56
[2020-11-21] MEDS: PANTOPRAZOLE 40 MG TAB PO SCH ×2 (10:06→20:37)
[2020-11-21] MEDS: DOCUSATE SOD 100 MG CAP PO SCH ×2 (10:07→20:36)
[2020-11-21] MEDS: OXYBUTYNIN CHL 5 MG TAB PO SCH ×2 (10:07→20:37)
[2020-11-21] MEDS: MORPHINE SULF 30 mg ER tab PO SCH ×2 (10:07→22:17)
[2020-11-21] MEDS: ENOXAPARIN SOD 40 MG/0.4 ML SYRINGE SC SCH (10:08)
[2020-11-21 12:53] VITALS: BP 115/63
[2020-11-21 17:00] VITALS: BP 123/90
[2020-11-21] MEDS: SODIUM CHLORIDE 0.9% 1,000 ML IV SCH (17:27)
[2020-11-21] MEDS: IPRATROPIUM BROM 0.5 MG/2.5ML INH SOL NEB PRN (18:58)
[2020-11-21] MEDS: ALBUTEROL SULF 2.5 MG/0.5ML(0.5%) NEB SOLN NEB PRN (18:58)
[2020-11-21] MEDS: LACTULOSE 20Gm/30ML SOLN PO PRN (20:38)
[2020-11-21 22:00] VITALS: BP 100/59
[2020-11-22] MEDS: NEOMYCIN-POLYM-GRAM OPTH(EYE) SOL 10ML EACHEYE SCH ×6 (01:52→22:04)
[2020-11-22] MEDS: oxyCODONE HCL 5MG TAB PO PRN ×3 (03:55→17:33)
[2020-11-22 05:00] VITALS: BP 97/51
[2020-11-22] MEDS: SODIUM CHLORIDE 0.9% 1,000 ML IV SCH ×2 (05:13→23:11)
[2020-11-22] MEDS: NYSTATIN (MOUTH-THROAT) 500,000 UNITS/5 ML SUSP MT SCH ×4 (05:52→22:04)
[2020-11-22] MEDS: SUCRALFATE 1 GM/10 ML ORAL SUSP PO SCH ×4 (05:52→22:04)
[2020-11-22] MEDS: Ensure HIGH Protein Chocolate 8oz Bottle PO SCH ×3 (08:00→18:00)
[2020-11-22 09:00] VITALS: BP 102/58
[2020-11-22] MEDS: OXYBUTYNIN CHL 5 MG TAB PO SCH ×2 (09:58→22:04)
[2020-11-22] MEDS: MORPHINE SULF 30 mg ER tab PO SCH ×2 (09:58→22:04)
[2020-11-22] MEDS: PANTOPRAZOLE 40 MG TAB PO SCH ×2 (09:58→22:05)
[2020-11-22] MEDS: DOCUSATE SOD 100 MG CAP PO SCH ×2 (09:58→22:04)
[2020-11-22] MEDS: ENOXAPARIN SOD 40 MG/0.4 ML SYRINGE SC SCH (10:00)
[2020-11-22 13:00] VITALS: BP 126/68
[2020-11-22 17:00] VITALS: BP 106/68
[2020-11-22 21:13] VITALS: BP 106/68
[2020-11-22 22:00] VITALS: BP 98/60
[2020-11-23] MEDS: oxyCODONE HCL 5MG TAB PO PRN ×3 (00:22→15:27)
[2020-11-23] MEDS: NEOMYCIN-POLYM-GRAM OPTH(EYE) SOL 10ML EACHEYE SCH ×6 (01:40→22:00)
[2020-11-23 05:00] VITALS: BP 126/80
[2020-11-23] MEDS: NYSTATIN (MOUTH-THROAT) 500,000 UNITS/5 ML SUSP MT SCH ×4 (05:52→22:00)
[2020-11-23] MEDS: SUCRALFATE 1 GM/10 ML ORAL SUSP PO SCH ×4 (05:53→21:59)
[2020-11-23] MEDS: Ensure HIGH Protein Chocolate 8oz Bottle PO SCH ×3 (08:07→18:00)
[2020-11-23] MEDS: ALBUTEROL SULF 2.5 MG/0.5ML(0.5%) NEB SOLN NEB PRN (08:11)
[2020-11-23] MEDS: IPRATROPIUM BROM 0.5 MG/2.5ML INH SOL NEB PRN (08:11)
[2020-11-23 09:00] VITALS: BP 116/68
[2020-11-23] MEDS: DOCUSATE SOD 100 MG CAP PO SCH ×2 (10:08→21:59)
[2020-11-23] MEDS: OXYBUTYNIN CHL 5 MG TAB PO SCH ×2 (10:08→21:59)
[2020-11-23] MEDS: PANTOPRAZOLE 40 MG TAB PO SCH ×2 (10:09→21:59)
[2020-11-23] MEDS: MORPHINE SULF 30 mg ER tab PO SCH ×2 (10:09→21:59)
[2020-11-23] MEDS: ENOXAPARIN SOD 40 MG/0.4 ML SYRINGE SC SCH (10:09)
[2020-11-23 13:00] VITALS: BP 96/55
[2020-11-23] MEDS: diphenhdrAMINE HCL 25 MG CAP PO PRN (15:27)
[2020-11-23] MEDS ORDERED: ALBUAER3 IN (16:20)
[2020-11-23 16:36] VITALS: BP 119/64
[2020-11-23 22:00] VITALS: BP 111/59
[2020-11-24] MEDS: NEOMYCIN-POLYM-GRAM OPTH(EYE) SOL 10ML EACHEYE SCH ×6 (02:47→21:34)
[2020-11-24 05:00] VITALS: BP 111/54
[2020-11-24] MEDS: oxyCODONE HCL 5MG TAB PO PRN ×3 (05:04→16:20)
[2020-11-24] MEDS: SODIUM CHLORIDE 0.9% 1,000 ML IV SCH (05:08)
[2020-11-24] MEDS: NYSTATIN (MOUTH-THROAT) 500,000 UNITS/5 ML SUSP MT SCH ×4 (05:55→21:22)
[2020-11-24] MEDS: SUCRALFATE 1 GM/10 ML ORAL SUSP PO SCH ×4 (05:55→21:22)
[2020-11-24 08:00] VITALS: BP 128/72
[2020-11-24] MEDS: Ensure HIGH Protein Chocolate 8oz Bottle PO SCH ×3 (08:00→16:20)
[2020-11-24] MEDS: DOCUSATE SOD 100 MG CAP PO SCH ×2 (10:49→21:23)
[2020-11-24] MEDS: MORPHINE SULF 30 mg ER tab PO SCH ×2 (10:51→21:24)
[2020-11-24] MEDS: OXYBUTYNIN CHL 5 MG TAB PO SCH ×2 (10:51→21:23)
[2020-11-24] MEDS: ENOXAPARIN SOD 40 MG/0.4 ML SYRINGE SC SCH (10:52)
[2020-11-24] MEDS: PANTOPRAZOLE 40 MG TAB PO SCH ×2 (10:52→21:24)
[2020-11-24 12:00] VITALS: BP 124/71
[2020-11-24] MEDS ORDERED: DOCU-94 PO (13:38)
[2020-11-24 16:00] VITALS: BP 133/76
[2020-11-24] MEDS: diphenhdrAMINE HCL 25 MG CAP PO PRN (21:25)
[2020-11-24 22:00] VITALS: BP 119/66
[2020-11-25] MEDS: NEOMYCIN-POLYM-GRAM OPTH(EYE) SOL 10ML EACHEYE SCH ×6 (02:13→21:03)
[2020-11-25] MEDS: oxyCODONE HCL 5MG TAB PO PRN ×2 (02:14→23:59)
[2020-11-25 05:00] VITALS: BP 114/66
[2020-11-25] MEDS: SUCRALFATE 1 GM/10 ML ORAL SUSP PO SCH ×4 (06:01→21:04)
[2020-11-25] MEDS: NYSTATIN (MOUTH-THROAT) 500,000 UNITS/5 ML SUSP MT SCH ×4 (06:01→21:04)
[2020-11-25] MEDS: Ensure HIGH Protein Chocolate 8oz Bottle PO SCH ×3 (08:00→18:00)
[2020-11-25 09:00] VITALS: BP 111/64
[2020-11-25] MEDS: OXYBUTYNIN CHL 5 MG TAB PO SCH ×2 (11:52→21:05)
[2020-11-25] MEDS: DOCUSATE SOD 100 MG CAP PO SCH ×2 (11:52→21:04)
[2020-11-25] MEDS: PANTOPRAZOLE 40 MG TAB PO SCH ×2 (11:53→21:05)
[2020-11-25] MEDS: MORPHINE SULF 30 mg ER tab PO SCH ×2 (11:53→21:05)
[2020-11-25] MEDS: ENOXAPARIN SOD 40 MG/0.4 ML SYRINGE SC SCH (11:53)
[2020-11-25 13:14] VITALS: BP 133/75
[2020-11-25 17:00] VITALS: BP 123/69
[2020-11-25 22:00] VITALS: BP 125/67
[2020-11-26] MEDS: NEOMYCIN-POLYM-GRAM OPTH(EYE) SOL 10ML EACHEYE SCH ×6 (02:00→20:53)
[2020-11-26 05:00] VITALS: BP 117/63
[2020-11-26] MEDS: NYSTATIN (MOUTH-THROAT) 500,000 UNITS/5 ML SUSP MT SCH ×4 (05:58→21:12)
[2020-11-26] MEDS: SUCRALFATE 1 GM/10 ML ORAL SUSP PO SCH ×4 (05:58→21:12)
[2020-11-26] MEDS: oxyCODONE HCL 5MG TAB PO PRN ×2 (05:59→15:36)
[2020-11-26 06:42] LABS: Basophils # (auto) 0 10 ^3/uL (0-0.2); Basophils % (auto) 0.4 % (0.0-2.0); Eosinophils # (auto) 0.3 10 ^3/uL (0-0.8); Eosinophils % (auto) 3.5 % (0.0-7.0); Hematocrit 32.2 % (41.0-53.0); Hemoglobin 10.9 g/dL (13.5-17.5); Lymphocytes # (auto) 1.5 10 ^3/uL (0.4-5.4); Lymphocytes % (auto) 21.4 % (10.0-50.0); Mean Corpuscular Hemoglobin 31.3 pg (28.0-32.0); Mean Corpuscular Hgb Conc. 33.8 g/dL (32.0-36.0); Mean Corpuscular Volume 92.7 fL (80.0-100.0); Monocytes # (auto) 0.7 10 ^3/uL (0-1.3); Monocytes % (auto) 9.7 % (0.0-12.0); Neutrophils # (auto) 4.6 10 ^3/uL (1.6-8.6); Red Blood Cells 3.47 10^6/uL (4.5-5.90); White Blood Cell 7.1 10^3/uL (4.4-10.8)
[2020-11-26 07:06] LABS: Potassium 3.6 mmol/L (3.5-5.1)
[2020-11-26 07:14] LABS: BUN/Creatinine Ratio 18.2; Calcium 8.4 mg/dL (8.5-10.1)
[2020-11-26] MEDS: Ensure HIGH Protein Chocolate 8oz Bottle PO SCH ×3 (08:00→18:00)
[2020-11-26 09:00] VITALS: BP 102/56
[2020-11-26] MEDS: OXYBUTYNIN CHL 5 MG TAB PO SCH ×2 (10:00→20:54)
[2020-11-26] MEDS: DOCUSATE SOD 100 MG CAP PO SCH ×2 (10:00→20:54)
[2020-11-26] MEDS: ENOXAPARIN SOD 40 MG/0.4 ML SYRINGE SC SCH (10:48)
[2020-11-26] MEDS: PANTOPRAZOLE 40 MG TAB PO SCH ×2 (10:48→20:54)
[2020-11-26] MEDS: ONDANSETRON HCL 4 MG/2 ML VIAL IV PRN (10:48)
[2020-11-26] MEDS: MORPHINE SULF 30 mg ER tab PO SCH ×2 (10:49→20:55)
[2020-11-26 13:00] VITALS: BP 87/50
[2020-11-26] MEDS: diphenhdrAMINE HCL 25 MG CAP PO PRN (21:13)
[2020-11-26 21:16] VITALS: BP 87/50
[2020-11-26 22:00] VITALS: BP 110/54
[2020-11-27] MEDS: oxyCODONE HCL 5MG TAB PO PRN ×3 (00:06→14:13)
[2020-11-27] MEDS: NEOMYCIN-POLYM-GRAM OPTH(EYE) SOL 10ML EACHEYE SCH ×6 (02:16→21:03)
[2020-11-27 05:00] VITALS: BP 92/52
[2020-11-27] MEDS: NYSTATIN (MOUTH-THROAT) 500,000 UNITS/5 ML SUSP MT SCH ×4 (06:00→21:03)
[2020-11-27] MEDS: SUCRALFATE 1 GM/10 ML ORAL SUSP PO SCH ×4 (06:01→21:04)
[2020-11-27 09:00] VITALS: BP 154/76
[2020-11-27] MEDS: ENOXAPARIN SOD 40 MG/0.4 ML SYRINGE SC SCH (09:07)
[2020-11-27] MEDS: DOCUSATE SOD 100 MG CAP PO SCH ×2 (09:07→21:04)
[2020-11-27] MEDS: PANTOPRAZOLE 40 MG TAB PO SCH ×2 (09:08→21:05)
[2020-11-27] MEDS: OXYBUTYNIN CHL 5 MG TAB PO SCH ×2 (09:08→21:04)
[2020-11-27] MEDS: MORPHINE SULF 30 mg ER tab PO SCH ×2 (09:08→21:04)
[2020-11-27] MEDS: Ensure HIGH Protein Chocolate 8oz Bottle PO SCH ×3 (09:14→17:43)
[2020-11-27] MEDS: LORazepam 0.5 MG TAB PO PRN (12:29)
[2020-11-27 13:00] VITALS: BP 140/88
[2020-11-27 17:00] VITALS: BP 144/82
[2020-11-27 22:10] VITALS: BP 141/111
[2020-11-28] MEDS: oxyCODONE HCL 5MG TAB PO PRN ×3 (00:03→20:53)
[2020-11-28] MEDS: ONDANSETRON HCL 4 MG/2 ML VIAL IV PRN (00:10)
[2020-11-28] MEDS: NEOMYCIN-POLYM-GRAM OPTH(EYE) SOL 10ML EACHEYE SCH ×6 (02:05→22:42)
[2020-11-28 04:54] VITALS: BP 84/50
[2020-11-28] MEDS: NYSTATIN (MOUTH-THROAT) 500,000 UNITS/5 ML SUSP MT SCH ×4 (05:59→22:25)
[2020-11-28] MEDS: SUCRALFATE 1 GM/10 ML ORAL SUSP PO SCH ×4 (05:59→22:33)
[2020-11-28 08:30] VITALS: BP 136/79
[2020-11-28] MEDS: DOCUSATE SOD 100 MG CAP PO SCH ×2 (10:24→22:21)
[2020-11-28] MEDS: OXYBUTYNIN CHL 5 MG TAB PO SCH ×2 (10:24→22:24)
[2020-11-28] MEDS: PANTOPRAZOLE 40 MG TAB PO SCH ×2 (10:24→22:25)
[2020-11-28] MEDS: MORPHINE SULF 30 mg ER tab PO SCH ×2 (10:26→22:24)
[2020-11-28] MEDS: Ensure HIGH Protein Chocolate 8oz Bottle PO SCH ×3 (10:26→19:18)
[2020-11-28] MEDS: ENOXAPARIN SOD 40 MG/0.4 ML SYRINGE SC SCH (10:27)
[2020-11-28] MEDS ORDERED: LACTULOSE 20Gm/30ML SOLN PO PRN (12:45)
[2020-11-28 13:00] VITALS: BP 97/55
[2020-11-28] MEDS ORDERED: LACTULOSE 20Gm/30ML SOLN PO ONE (14:45)
[2020-11-28 16:30] VITALS: BP 97/52
[2020-11-28 22:00] VITALS: BP_SYST 114; BP_SYST 89; BP_DIAS 49; BP_DIAS 61
[2020-11-29] MEDS: BACLOFEN 10 MG TAB PO PRN ×2 (00:43→13:44)
[2020-11-29] MEDS: NEOMYCIN-POLYM-GRAM OPTH(EYE) SOL 10ML EACHEYE SCH ×6 (02:06→22:04)
[2020-11-29] MEDS: SUCRALFATE 1 GM/10 ML ORAL SUSP PO SCH ×4 (06:27→21:59)
[2020-11-29] MEDS: NYSTATIN (MOUTH-THROAT) 500,000 UNITS/5 ML SUSP MT SCH ×4 (06:27→21:59)
[2020-11-29] MEDS: oxyCODONE HCL 5MG TAB PO PRN ×2 (06:38→17:07)
[2020-11-29 06:44] VITALS: BP 121/64
[2020-11-29 09:00] VITALS: BP 90/53
[2020-11-29] MEDS: DOCUSATE SOD 100 MG CAP PO SCH ×2 (09:52→22:04)
[2020-11-29] MEDS: ENOXAPARIN SOD 40 MG/0.4 ML SYRINGE SC SCH (09:52)
[2020-11-29] MEDS: PANTOPRAZOLE 40 MG TAB PO SCH ×2 (09:52→21:59)
[2020-11-29] MEDS: OXYBUTYNIN CHL 5 MG TAB PO SCH ×2 (09:52→21:59)
[2020-11-29] MEDS: Ensure HIGH Protein Chocolate 8oz Bottle PO SCH ×3 (09:52→17:11)
[2020-11-29] MEDS: MORPHINE SULF 30 mg ER tab PO SCH ×2 (10:00→22:48)
[2020-11-29 13:00] VITALS: BP 107/62
[2020-11-29] MEDS: SODIUM CHLORIDE 0.9% 1,000 ML IV SCH (13:42)
[2020-11-29] MEDS: diphenhdrAMINE HCL 25 MG CAP PO PRN (13:48)
[2020-11-29 17:00] VITALS: BP 124/71
[2020-11-29 21:50] VITALS: BP 104/61
[2020-11-30] MEDS: NEOMYCIN-POLYM-GRAM OPTH(EYE) SOL 10ML EACHEYE SCH ×6 (03:48→22:00)
[2020-11-30] MEDS: oxyCODONE HCL 5MG TAB PO PRN ×3 (03:49→17:52)
[2020-11-30 05:02] VITALS: BP 107/65
[2020-11-30] MEDS: NYSTATIN (MOUTH-THROAT) 500,000 UNITS/5 ML SUSP MT SCH ×5 (06:16→22:00)
[2020-11-30] MEDS: SUCRALFATE 1 GM/10 ML ORAL SUSP PO SCH ×5 (06:16→22:00)
[2020-11-30] MEDS: SODIUM CHLORIDE 0.9% 1,000 ML IV SCH ×2 (06:18→22:18)
[2020-11-30] MEDS: BACLOFEN 10 MG TAB PO PRN (06:32)
[2020-11-30 07:01] LABS: Potassium 3.8 mmol/L (3.5-5.1)
[2020-11-30 07:28] LABS: Hematocrit 33.2 % (41.0-53.0); Hemoglobin 10.7 g/dL (13.5-17.5)
[2020-11-30 09:00] VITALS: BP 99/55
[2020-11-30] MEDS: OXYBUTYNIN CHL 5 MG TAB PO SCH ×3 (10:22→22:00)
[2020-11-30] MEDS: PANTOPRAZOLE 40 MG TAB PO SCH ×3 (10:22→22:00)
[2020-11-30] MEDS: DOCUSATE SOD 100 MG CAP PO SCH ×2 (10:22→10:38)
[2020-11-30] MEDS: MORPHINE SULF 30 mg ER tab PO SCH ×2 (10:22→21:51)
[2020-11-30] MEDS: ENOXAPARIN SOD 40 MG/0.4 ML SYRINGE SC SCH (10:23)
[2020-11-30] MEDS: Ensure HIGH Protein Chocolate 8oz Bottle PO SCH ×3 (10:24→17:00)
[2020-11-30 13:00] VITALS: BP 145/74
[2020-11-30 17:00] VITALS: BP 109/80
[2020-11-30 20:00] VITALS: BP 123/67
[2020-11-30 22:00] VITALS: BP 123/67
[2020-12-01] MEDS: oxyCODONE HCL 5MG TAB PO PRN ×2 (01:23→07:24)
[2020-12-01] MEDS: NEOMYCIN-POLYM-GRAM OPTH(EYE) SOL 10ML EACHEYE SCH ×6 (02:30→22:06)
[2020-12-01 05:00] VITALS: BP 91/53
[2020-12-01] MEDS: NYSTATIN (MOUTH-THROAT) 500,000 UNITS/5 ML SUSP MT SCH ×2 (06:12→11:34)
[2020-12-01] MEDS: SUCRALFATE 1 GM/10 ML ORAL SUSP PO SCH ×4 (06:15→22:06)
[2020-12-01] MEDS: Ensure HIGH Protein Chocolate 8oz Bottle PO SCH ×3 (08:00→17:30)
[2020-12-01 09:00] VITALS: BP 100/38
[2020-12-01] MEDS: OXYBUTYNIN CHL 5 MG TAB PO SCH ×2 (11:32→22:06)
[2020-12-01] MEDS: DOCUSATE SOD 100 MG CAP PO SCH ×2 (11:32→22:00)
[2020-12-01] MEDS: ENOXAPARIN SOD 40 MG/0.4 ML SYRINGE SC SCH (11:33)
[2020-12-01] MEDS: MORPHINE SULF 30 mg ER tab PO SCH ×2 (11:33→22:07)
[2020-12-01] MEDS: PANTOPRAZOLE 40 MG TAB PO SCH ×2 (11:33→22:07)
[2020-12-01] MEDS ORDERED: FUROSEMIDE 20 MG/2 ML VIAL IV ONE (11:45)
[2020-12-01] MEDS ORDERED: POTASSIUM CHL 10 Meq TABLET PO ONE (11:45)
[2020-12-01] MEDS ORDERED: ALBUTEROL SULF 2.5 MG/0.5ML(0.5%) NEB SOLN NEB PRN ×2 (11:45)
[2020-12-01] MEDS: ALBUTEROL SULF 2.5 MG/0.5ML(0.5%) NEB SOLN NEB PRN ×2 (12:04→19:19)
[2020-12-01] MEDS: IPRATROPIUM BROM 0.5 MG/2.5ML INH SOL NEB PRN ×2 (12:04→19:20)
[2020-12-01 13:00] VITALS: BP 96/64
[2020-12-01 17:00] VITALS: BP 127/92
[2020-12-01 22:50] VITALS: BP 84/80
[2020-12-02] MEDS: oxyCODONE HCL 5MG TAB PO PRN ×2 (01:29→18:01)
[2020-12-02] MEDS: NEOMYCIN-POLYM-GRAM OPTH(EYE) SOL 10ML EACHEYE SCH ×6 (01:30→23:20)
[2020-12-02] MEDS: SUCRALFATE 1 GM/10 ML ORAL SUSP PO SCH ×4 (06:29→22:47)
[2020-12-02] MEDS: Ensure HIGH Protein Chocolate 8oz Bottle PO SCH ×3 (08:08→18:00)
[2020-12-02 08:48] VITALS: BP 102/49
[2020-12-02] MEDS: DOCUSATE SOD 100 MG CAP PO SCH ×2 (10:00→22:00)
[2020-12-02] MEDS: MORPHINE SULF 30 mg ER tab PO SCH ×2 (10:25→22:47)
[2020-12-02] MEDS: OXYBUTYNIN CHL 5 MG TAB PO SCH ×2 (10:25→22:47)
[2020-12-02] MEDS: PANTOPRAZOLE 40 MG TAB PO SCH ×2 (10:25→22:48)
[2020-12-02] MEDS: ENOXAPARIN SOD 40 MG/0.4 ML SYRINGE SC SCH (10:26)
[2020-12-02 11:23] VITALS: BP 102/49
[2020-12-02 13:00] VITALS: BP 96/59
[2020-12-02 17:00] VITALS: BP 91/52
[2020-12-02 22:00] VITALS: BP 98/49
[2020-12-03] MEDS: NEOMYCIN-POLYM-GRAM OPTH(EYE) SOL 10ML EACHEYE SCH ×6 (02:26→23:00)
[2020-12-03 05:00] VITALS: BP 101/67
[2020-12-03] MEDS: oxyCODONE HCL 5MG TAB PO PRN ×3 (06:37→23:01)
[2020-12-03] MEDS: SUCRALFATE 1 GM/10 ML ORAL SUSP PO SCH ×4 (06:37→23:00)
[2020-12-03] MEDS: Ensure HIGH Protein Chocolate 8oz Bottle PO SCH ×3 (08:13→18:14)
[2020-12-03 09:00] VITALS: BP 92/60
[2020-12-03] MEDS: ONDANSETRON HCL 4 MG/2 ML VIAL IV PRN (09:16)
[2020-12-03] MEDS: DOCUSATE SOD 100 MG CAP PO SCH ×2 (09:36→22:00)
[2020-12-03] MEDS: PANTOPRAZOLE 40 MG TAB PO SCH ×2 (09:36→23:00)
[2020-12-03] MEDS: OXYBUTYNIN CHL 5 MG TAB PO SCH ×2 (09:36→22:00)
[2020-12-03] MEDS: ENOXAPARIN SOD 40 MG/0.4 ML SYRINGE SC SCH (09:36)
[2020-12-03] MEDS: MORPHINE SULF 30 mg ER tab PO SCH ×2 (09:36→23:00)
[2020-12-03] MEDS: ONDANSETRON ODT 4 MG TAB PO PRN ×2 (09:43→16:13)
[2020-12-03 13:00] VITALS: BP 98/64
[2020-12-03 17:00] VITALS: BP 135/76
[2020-12-03 22:00] VITALS: BP 104/68
[2020-12-04] MEDS: NEOMYCIN-POLYM-GRAM OPTH(EYE) SOL 10ML EACHEYE SCH ×6 (02:00→22:08)
[2020-12-04 05:00] VITALS: BP 115/82
[2020-12-04] MEDS: oxyCODONE HCL 5MG TAB PO PRN ×4 (05:34→18:29)
[2020-12-04] MEDS: ONDANSETRON ODT 4 MG TAB PO PRN ×2 (05:34→14:24)
[2020-12-04] MEDS: SUCRALFATE 1 GM/10 ML ORAL SUSP PO SCH ×4 (06:43→21:34)
[2020-12-04] MEDS: Ensure HIGH Protein Chocolate 8oz Bottle PO SCH ×3 (08:00→18:29)
[2020-12-04 09:00] VITALS: BP 93/56
[2020-12-04] MEDS: DOCUSATE SOD 100 MG CAP PO SCH ×2 (10:00→21:34)
[2020-12-04] MEDS: OXYBUTYNIN CHL 5 MG TAB PO SCH ×2 (10:22→22:08)
[2020-12-04] MEDS: ENOXAPARIN SOD 40 MG/0.4 ML SYRINGE SC SCH (10:23)
[2020-12-04] MEDS: PANTOPRAZOLE 40 MG TAB PO SCH ×2 (10:23→22:09)
[2020-12-04] MEDS: MORPHINE SULF 30 mg ER tab PO SCH ×2 (10:23→22:08)
[2020-12-04] MEDS: ALBUTEROL SULF 2.5 MG/0.5ML(0.5%) NEB SOLN NEB PRN ×2 (10:58→22:00)
[2020-12-04] MEDS: IPRATROPIUM BROM 0.5 MG/2.5ML INH SOL NEB PRN ×2 (10:59→22:00)
[2020-12-04 11:00] VITALS: BP 93/56
[2020-12-04 13:00] VITALS: BP 99/65
[2020-12-04 17:00] VITALS: BP 112/68
[2020-12-04 22:00] VITALS: BP 121/65
[2020-12-04] MEDS: diphenhdrAMINE HCL 25 MG CAP PO PRN (22:09)
[2020-12-05] MEDS: NEOMYCIN-POLYM-GRAM OPTH(EYE) SOL 10ML EACHEYE SCH ×7 (02:00→22:45)
[2020-12-05] MEDS: SUCRALFATE 1 GM/10 ML ORAL SUSP PO SCH ×5 (05:12→22:45)
[2020-12-05] MEDS: ALBUTEROL SULF 2.5 MG/0.5ML(0.5%) NEB SOLN NEB PRN (06:57)
[2020-12-05] MEDS: IPRATROPIUM BROM 0.5 MG/2.5ML INH SOL NEB PRN (06:57)
[2020-12-05 07:40] LABS: Hematocrit 34.2 % (41.0-53.0); Hemoglobin 11.5 g/dL (13.5-17.5)
[2020-12-05 07:57] LABS: Magnesium 2.3 mg/dL (1.6-2.6)
[2020-12-05 08:00] LABS: Potassium 2.3 mmol/L (3.5-5.1)
[2020-12-05] MEDS: oxyCODONE HCL 5MG TAB PO PRN ×3 (08:08→21:14)
[2020-12-05] MEDS: Ensure HIGH Protein Chocolate 8oz Bottle PO SCH ×3 (08:08→17:53)
[2020-12-05 09:00] VITALS: BP 76/56
[2020-12-05 09:55] VITALS: BP 96/58
[2020-12-05] MEDS: DOCUSATE SOD 100 MG CAP PO SCH ×3 (10:00→22:45)
[2020-12-05] MEDS ORDERED: POTASSIUM CHL 20 Meq TABLET PO ONE (10:30)
[2020-12-05] MEDS ORDERED: POTASSIUM CHL 20MEQ/100ML 100 ML IV ONE (10:30)
[2020-12-05] MEDS: MORPHINE SULF 30 mg ER tab PO SCH ×3 (10:42→22:45)
[2020-12-05] MEDS: ENOXAPARIN SOD 40 MG/0.4 ML SYRINGE SC SCH (10:42)
[2020-12-05] MEDS: OXYBUTYNIN CHL 5 MG TAB PO SCH ×3 (10:42→22:45)
[2020-12-05] MEDS: PANTOPRAZOLE 40 MG TAB PO SCH ×3 (10:42→22:45)
[2020-12-05] MEDS: ALBUTEROL SULF 2.5 MG/0.5ML(0.5%) NEB SOLN NEB SCH ×2 (12:10→18:50)
[2020-12-05] MEDS: IPRATROPIUM BROM 0.5 MG/2.5ML INH SOL NEB SCH ×2 (12:10→18:50)
[2020-12-05 13:00] VITALS: BP 99/64
[2020-12-05 17:00] VITALS: BP 102/55
[2020-12-05] MEDS: BACLOFEN 10 MG TAB PO PRN (17:53)
[2020-12-05 22:00] VITALS: BP 94/72
[2020-12-05] MEDS: LORazepam 0.5 MG TAB PO PRN (22:39)
[2020-12-06] MEDS: IPRATROPIUM BROM 0.5 MG/2.5ML INH SOL NEB SCH ×3 (00:22→11:20)
[2020-12-06] MEDS: ALBUTEROL SULF 2.5 MG/0.5ML(0.5%) NEB SOLN NEB SCH ×3 (00:23→11:21)
[2020-12-06] MEDS: NEOMYCIN-POLYM-GRAM OPTH(EYE) SOL 10ML EACHEYE SCH ×3 (01:57→10:00)
[2020-12-06 05:00] VITALS: BP 105/55
[2020-12-06] MEDS: SUCRALFATE 1 GM/10 ML ORAL SUSP PO SCH ×2 (06:24→11:41)
[2020-12-06] MEDS: Ensure HIGH Protein Chocolate 8oz Bottle PO SCH ×2 (08:38→11:41)
[2020-12-06 09:00] VITALS: BP 111/53
[2020-12-06] MEDS: OXYBUTYNIN CHL 5 MG TAB PO SCH (11:39)
[2020-12-06] MEDS: DOCUSATE SOD 100 MG CAP PO SCH (11:39)
[2020-12-06] MEDS: MORPHINE SULF 30 mg ER tab PO SCH (11:40)
[2020-12-06] MEDS: PANTOPRAZOLE 40 MG TAB PO SCH (11:40)
[2020-12-06] MEDS: ENOXAPARIN SOD 40 MG/0.4 ML SYRINGE SC SCH (11:41)
[2020-12-06 12:29] VITALS: BP 111/53
[2020-12-06] MEDS ORDERED: POTASSIUM EFFERVESENT TAB 25 MEQ PO ONE (12:30)
[2020-12-06 13:00] VITALS: BP 99/50
== END 2020-12-06 13:40 | disposition hospice, home (50) | DRG 380 ==
LOC: EDBD 21:53 → ER 21:53 → TELE 11-10 08:30 → TELE-CENTR 11-10 18:12 → CENTRAL 12-01 06:24
PROVIDERS: ADMIT Internal Medicine; ATTEND Internal Medicine
PROC: 0DB68ZX Excision of Stomach, Via Natural or Artificial Opening Endoscopic, Diagnostic (ICD-10-PCS; 2020-11-16)
PROC: 0DB38ZX Excision of Lower Esophagus, Via Natural or Artificial Opening Endoscopic, Diagnostic (ICD-10-PCS; 2020-11-16)
PROC: 0DB98ZX Excision of Duodenum, Via Natural or Artificial Opening Endoscopic, Diagnostic (ICD-10-PCS; principal; 2020-11-16 15:00)
DX: K22.10 Ulcer of esophagus without bleeding (principal); E43 Unspecified severe protein-calorie malnutrition; N17.0 Acute kidney failure with tubular necrosis; E87.1 Hypo-osmolality and hyponatremia; D68.9 Coagulation defect, unspecified; Z68.1 Body mass index [BMI] 19.9 or less, adult; N12 Tubulo-interstitial nephritis, not specified as acute or chronic; R65.10 Systemic inflammatory response syndrome (SIRS) of non-infectious origin without acute organ dysfunction; J98.11 Atelectasis; C22.9 Malignant neoplasm of liver, not specified as primary or secondary; R13.12 Dysphagia, oropharyngeal phase; K26.9 Duodenal ulcer, unspecified as acute or chronic, without hemorrhage or perforation; K29.80 Duodenitis without bleeding; K29.70 Gastritis, unspecified, without bleeding; K52.9 Noninfective gastroenteritis and colitis, unspecified; K21.9 Gastro-esophageal reflux disease without esophagitis; N20.0 Calculus of kidney; Z20.822 Contact with and (suspected) exposure to COVID-19; D63.1 Anemia in chronic kidney disease; E87.6 Hypokalemia; I27.21 Secondary pulmonary arterial hypertension; E27.8 Other specified disorders of adrenal gland; F17.210 Nicotine dependence, cigarettes, uncomplicated; K59.00 Constipation, unspecified; G89.4 Chronic pain syndrome; I12.9 Hypertensive chronic kidney disease with stage 1 through stage 4 chronic kidney disease, or unspecified chronic kidney disease; K44.9 Diaphragmatic hernia without obstruction or gangrene; M19.90 Unspecified osteoarthritis, unspecified site; K31.9 Disease of stomach and duodenum, unspecified; D72.829 Elevated white blood cell count, unspecified; N18.9 Chronic kidney disease, unspecified; Z51.5 Encounter for palliative care; Z85.05 Personal history of malignant neoplasm of liver; Z86.73 Personal history of transient ischemic attack (TIA), and cerebral infarction without residual deficits; Z87.11 Personal history of peptic ulcer disease; Z87.19 Personal history of other diseases of the digestive system; Z87.442 Personal history of urinary calculi; Z86.718 Personal history of other venous thrombosis and embolism
CPT/HCPCS: 36415; 43239; 71045; 74176; 74177; 80048; 80053; 80202; 81001; 82150; 82378; 82565; 83605; 83690; 83735; 84132; 84443; 84484; 85007; 85014; 85018; 85025; 85027; 85610; 85730; 86850; 86900; 86901; 87040; 87077; 87081; 87086; 87186; 87426; 92610; 93970; 94640; 96361; 96365; 96375; 96376; 97110; 97163; 97530; G0378; J0696; J2250; J2405; J3480; J3490; Q0162